=== PATIENT | female | born 1965 | race Caucasian/White ===

== ENCOUNTER 2019-01-09 13:08 | Emergency (ER) | payer OTHER ==
[~2019-01-09] VITALS: Ht 160 cm; Wt 73.0 kg
[2019-01-09] MEDS ORDERED: BUSPAR30 MG PO (13:35)
[2019-01-09] MEDS ORDERED: ABILIFY10 MG PO (13:36)
[2019-01-09] MEDS ORDERED: AMOXICILLIN 50500 M1 PO (13:36)
[2019-01-09] MEDS ORDERED: REMERON15 MG PO (13:37)
[2019-01-09 15:25] VITALS: BP 129/65
== END 2019-01-09 15:26 | disposition home or self-care (01) ==
LOC: M.ERS 13:08
DX: S39.012A Strain of muscle, fascia and tendon of lower back, initial encounter (principal); S29.012A Strain of muscle and tendon of back wall of thorax, initial encounter; R51 Headache; Z98.51 Tubal ligation status; W11.XXXA Fall on and from ladder, initial encounter; Y93.89 Activity, other specified; Y92.89 Other specified places as the place of occurrence of the external cause; Y99.8 Other external cause status

== ENCOUNTER → 2019-04-20 | Outpatient (CLI) | payer OTHER ==
[~2019-04-20] MED LIST: ABILIFY 5 MG TAB5 MG PO; AMOXICILLIN 50500 M1 PO; BUSPIRONE HCL10 MG PO; CYMBALTA30 MG PO; REMERON15 MG PO; ROBAXIN PO
== END ==
LOC: M.PC 03:22
DX: M47.26 Other spondylosis with radiculopathy, lumbar region (principal); M51.16 Intervertebral disc disorders with radiculopathy, lumbar region; M48.061 Spinal stenosis, lumbar region without neurogenic claudication; M79.604 Pain in right leg; M51.37 Other intervertebral disc degeneration, lumbosacral region

== ENCOUNTER → 2021-02-08 | Outpatient (CLI) | payer OTHER | LOC: M.LAB 07:38 | PROVIDERS: ATTEND Orthopaedic Surgery | DX: Z01.812 Encounter for preprocedural laboratory examination (principal); Z20.822 Contact with and (suspected) exposure to COVID-19 ==